=== PATIENT | male | born 1985 | race Hispanic/Latino ===

== ENCOUNTER 2020-11-12 15:18 | Emergency (ER) | payer SELFPAY ==
--- NOTE | 2020-11-12 17:53 | ER ---
Nurse's Notes [facility] Name: Federico Barroso Age: 35 yrs Sex: Male : 1985 Arrival Date: 11/12/2020 Time: 15:19 Bed DIS2 Private MD: Diagnosis: Presentation: 11/12 15:27 Chief complaint: Patient states: Fell about 20 minutes ago sustaining laceration to ss palm R hand. No active bleeding noted at this time. Coronavirus screen: Client denies travel out of the [place] in the last 14 days. Ebola Screen: Patient denies exposure to infectious person. Patient denies travel to an Ebola-affected area in the 21 days before illness onset. Initial Sepsis Screen: Does the patient meet any 2 criteria? No. Patient's initial sepsis screen is negative. Does the patient have a suspected source of infection? No. Patient's initial sepsis screen is negative. Risk Assessment: Do you want to hurt yourself or someone else? Patient reports no desire to harm self or others. Onset of symptoms was November 12, 2020. 15:27 Method Of Arrival: Ambulatory 15:27 Acuity: VICENTA 4 ss Historical: - Allergies: 15:28 No Known Allergies; ss - Immunization history:: Client reports having NOT received the Covid vaccine. Last tetanus immunization: unknown. - Social history:: Smoking status: Patient/guardian denies using tobacco, the patient reports quitting approximately 5 years ago. Assessment: 15:27 Reassessment: wound cleansed with soap and water and Betadine and NS gauze wrapped to ss wound. Pt placed in lobby notified of wait time. Pt verbalizes understanding. Vital Signs: 15:27 BP 123 / 57; Pulse 100; Resp 16; Temp 99.1(TE); Pulse Ox 99% on R/A; Weight 84.37 kg; ss Height 5 ft. 6 in. (167.64 cm); Pain 3/10; 15:27 Body Mass Index 30.02 (84.37 kg, 167.64 cm) ED Course: 15:19 Patient arrived in ED. ds1 15:28 Triage completed. ss 15:28 Arm band placed on right wrist. ss 17:48 Felix Arriola PA is PHCP. cp 17:49 Adriel Paula MD is Attending Physician. cp Administered Medications: No medications were administered Outcome: 17:50 Eloped from waiting room, before seeing physician 17:53 Patient left the ED. Signatures: Armida Valenzuela ds1 Federica Reaves, PRASAD RN Felix Arriola, PA PA cp
[2020-11-12 18:03] VITALS: BP 123/57; TEMP 99.1; O2SAT 99
== END 2020-11-12 17:53 | disposition left against medical advice (07) ==
LOC: ER 15:18
DX: Z53.21 Procedure and treatment not carried out due to patient leaving prior to being seen by health care provider (principal)
CPT/HCPCS: 99281